=== PATIENT | male | born 1935 ===

== ENCOUNTER 2025-01-25 12:27 | Inpatient (IN) | payer MEDICARE, BC ==
[~2025-01-25] VITALS: Ht 188 cm; Wt 91.3 kg
[2025-01-25 12:45] VITALS: BP 139/68
[2025-01-25 14:06] VITALS: BP 139/68
[2025-01-25 21:00] VITALS: BP 112/52; TEMP 97.6; O2SAT 100
[2025-01-25] MEDS ORDERED: REMEDY ESSENTIAL ZINC PASTE 113 GM TOP PRN (21:45)
[2025-01-25] MEDS ORDERED: TRAM50TA2 PO (22:18)
[2025-01-25] MEDS ORDERED: EZET10TA15 PO (22:18)
[2025-01-25] MEDS ORDERED: ASPI-1420 PO (22:18)
[2025-01-25] MEDS ORDERED: HYDR-3972 PO (22:18)
[2025-01-25] MEDS ORDERED: ACET325T53 PO (22:18)
[2025-01-25] MEDS ORDERED: DONE5TAB34 PO (22:18)
[2025-01-25] MEDS ORDERED: AMLO-212 PO (22:18)
[2025-01-25] MEDS ORDERED: FLUT16SP BNOSTRILS (22:18)
[2025-01-25] MEDS ORDERED: DOCU100C36 PO (22:18)
[2025-01-25] MEDS ORDERED: CHOL10005 PO (22:18)
[2025-01-25] MEDS ORDERED: FINA5TAB11 PO (22:18)
[2025-01-25] MEDS ORDERED: LEVO88TA5 PO (22:18)
[2025-01-25] MEDS ORDERED: DICL100G31 TP (22:18)
[2025-01-25] MEDS ORDERED: MELO-107 PO (22:18)
[2025-01-25] MEDS ORDERED: FAMO20TA8 PO (22:18)
[2025-01-25] MEDS ORDERED: PROP15DR EACHEYE (22:18)
[2025-01-25] MEDS ORDERED: PRAV80TA21 PO (22:18)
[2025-01-25] MEDS ORDERED: ACETAMINOPHEN 325 MG TABLET-SA PATIENTS-PAIN ONLY PO PRN (23:45)
[2025-01-25] MEDS ORDERED: FLUTICASONE PROP NASAL SPRAY 16 GM BOTTLE NS PRN (23:45)
[2025-01-26 06:07] VITALS: BP 117/54; TEMP 97.6; O2SAT 100
[2025-01-26] MEDS: TRAMADOL HCL 50 MG TABLET PO PRN (06:24)
[2025-01-26] MEDS ORDERED: LEVOTHYROXINE SODIUM 88 MCG TABLET PO SCH (07:00)
[2025-01-26 08:00] VITALS: BP 145/56; TEMP 97.3; O2SAT 100
[2025-01-26] MEDS: EZETIMIBE 10 MG TABLET PO SCH (08:55)
[2025-01-26] MEDS: FINASTERIDE 5 MG TABLET PO SCH (08:56)
[2025-01-26] MEDS: ASPIRIN EC 81 MG TABLET.DR PO SCH (08:56)
[2025-01-26] MEDS: FAMOTIDINE 20 MG TABLET PO SCH (08:56)
[2025-01-26] MEDS: AMLODIPINE 5 MG TABLET PO SCH (08:56)
[2025-01-26] MEDS: CHOLECALCIFEROL 1,000 UNIT TABLET PO SCH (08:56)
[2025-01-26] MEDS: DONEPEZIL 5 MG TABLET PO SCH (08:56)
[2025-01-26] MEDS: MELOXICAM 7.5 MG TABLET PO SCH (08:56)
[2025-01-26] MEDS: LEVOTHYROXINE SODIUM 88 MCG TABLET PO SCH (10:28)
[2025-01-26] MEDS: ACETAMINOPHEN 325 MG TABLET PO PRN (10:29)
[2025-01-26] MEDS ORDERED: METO25TA6 PO (13:22)
[2025-01-26 20:00] VITALS: BP 146/58; TEMP 97.3; O2SAT 99
[2025-01-26] MEDS: ATORVASTATIN 20 MG TABLET PO SCH (20:35)
[2025-01-27 06:41] VITALS: BP 138/59; TEMP 97.9; O2SAT 97
[2025-01-27 07:03] LABS: BASOPHILS % (AUTO) 0.9 % (0.0-2.0); EOSINOPHILS # (AUTO) 0.4 K/uL (0.0-0.7); EOSINOPHILS % (AUTO) 13.6 % (0.0-7.0); HEMATOCRIT 24.7 % (36.7-47.1); HEMOGLOBIN 8.8 g/dL (12.5-16.3); LYMPHOCYTES # (AUTO) 0.7 K/uL (0.8-4.8); MEAN CORPUSCULAR HEMOGLOBIN 32.9 uug (23.8-33.4); MEAN CORPUSCULAR HGB CONC 36 g/dL (32.5-36.3); MEAN CORPUSCULAR VOLUME 92.1 fL (73.0-96.2); MONOCYTES # (AUTO) 0.4 K/uL (0.1-1.30); MONOCYTES % (AUTO) 11.6 % (0.0-11.0); NEUTROPHILS # (AUTO) 1.7 K/uL (1.8-8.9); NEUTROPHILS % (AUTO) 51.9 % (38.5-71.5); PLATELET COUNT (AUTO) 139 K/uL (152-348); RED BLOOD CELL COUNT(AUTO) 2.69 MIL/uL (4.06-5.63); RED CELL DISTRIBUTION WIDTH 13.7 % (12.1-16.2); WHITE BLOOD COUNT (AUTO) 3.2 K/uL (3.6-10.2)
[2025-01-27 07:07] LABS: DIFFERENTIAL COMMENT 1
[2025-01-27 07:09] LABS: CALCIUM 8.6 mg/dL (8.5-10.1); CARBON DIOXIDE 31 mmol/L (21-32); CHLORIDE 101 mmol/L (98-107); CREATININE 0.9 mg/dL (0.6-1.3); GLUCOSE 76 mg/dL (74-106); SODIUM SERUM 137 mmol/L (136-145); UREA NITROGEN, BLOOD 13 mg/dL (7-18)
[2025-01-27 08:00] VITALS: BP 106/32; TEMP 97; O2SAT 97
[2025-01-27 16:00] VITALS: BP 141/97; TEMP 98.2; O2SAT 97
[2025-01-27 21:01] VITALS: BP 121/62; TEMP 98; O2SAT 98
[2025-01-28 06:00] VITALS: BP 129/53; TEMP 97.8; O2SAT 96
[2025-01-28 07:54] VITALS: BP 129/49; TEMP 98.1; O2SAT 97
[2025-01-28 16:11] VITALS: BP 114/59; TEMP 97.1; O2SAT 100
[2025-01-28 21:41] VITALS: BP 119/50; TEMP 98.1; O2SAT 100
[2025-01-29 06:43] VITALS: BP 133/60; TEMP 97.6; O2SAT 99
[2025-01-29 08:00] VITALS: BP 102/66; TEMP 97.7; O2SAT 97
[2025-01-29] MEDS: ARGININE/GLUTAMINE/CALCIUM BMB 1 EACH POWD.PACK PO SCH (09:16)
[2025-01-29 16:02] VITALS: BP 114/48; TEMP 97.6; O2SAT 98
[2025-01-29] MEDS: HYDROCODONE/APAP 5-325MG TABLET PO PRN (17:08)
[2025-01-29 20:00] VITALS: BP 126/64; TEMP 98.8; O2SAT 93
[2025-01-30 06:00] VITALS: BP 114/47; TEMP 98; O2SAT 98
[2025-01-30 09:07] VITALS: BP 116/50; TEMP 98.1; O2SAT 97
[2025-01-30 15:31] VITALS: BP 104/46; TEMP 97.9; O2SAT 99
[2025-01-30 21:55] VITALS: BP 118/48; TEMP 97.4; O2SAT 96
[2025-01-31 06:34] VITALS: BP 131/57; TEMP 97.9; O2SAT 98
[2025-01-31 10:56] VITALS: BP 123/50; TEMP 97.8; O2SAT 98
[2025-01-31 16:00] VITALS: BP 109/70; TEMP 97.6; O2SAT 97
[2025-01-31 21:09] VITALS: BP 112/43; TEMP 98; O2SAT 97
[2025-02-01 07:24] VITALS: BP 128/61; TEMP 97.7; O2SAT 96
[2025-02-01 09:00] VITALS: BP 106/40; TEMP 97.4; O2SAT 100
[2025-02-01 17:00] VITALS: BP 102/46; TEMP 97.7; O2SAT 98
[2025-02-01 19:50] VITALS: BP 118/45; TEMP 97.4; O2SAT 99
[2025-02-02 05:09] VITALS: BP 134/55; TEMP 97.7; O2SAT 97
[2025-02-02 08:00] VITALS: TEMP 97.4
[2025-02-02 16:47] VITALS: TEMP 97.6
[2025-02-02] MEDS ORDERED: BISACODYL 10 MG SUPP.RECT RC ONE (19:30)
[2025-02-02 20:00] VITALS: BP 126/55; TEMP 97.6; O2SAT 99
[2025-02-02] MEDS: BISACODYL 10 MG SUPP.RECT RC ONE (21:16)
[2025-02-03 06:00] VITALS: BP 129/70; TEMP 97.6; O2SAT 97
[2025-02-03 06:47] LABS: BASOPHILS % (AUTO) 1.2 % (0.0-2.0); EOSINOPHILS # (AUTO) 0.5 K/uL (0.0-0.7); EOSINOPHILS % (AUTO) 15.5 % (0.0-7.0); HEMATOCRIT 23.9 % (36.7-47.1); HEMOGLOBIN 8.6 g/dL (12.5-16.3); LYMPHOCYTES # (AUTO) 0.7 K/uL (0.8-4.8); LYMPHOCYTES % (AUTO) 22.4 % (20.5-51.5); MEAN CORPUSCULAR HEMOGLOBIN 33.4 uug (23.8-33.4); MEAN CORPUSCULAR HGB CONC 36 g/dL (32.5-36.3); MEAN CORPUSCULAR VOLUME 92.4 fL (73.0-96.2); MONOCYTES # (AUTO) 0.2 K/uL (0.1-1.30); MONOCYTES % (AUTO) 7.8 % (0.0-11.0); NEUTROPHILS # (AUTO) 1.7 K/uL (1.8-8.9); NEUTROPHILS % (AUTO) 53.1 % (38.5-71.5); PLATELET COUNT (AUTO) 197 K/uL (152-348); RED BLOOD CELL COUNT(AUTO) 2.58 MIL/uL (4.06-5.63); RED CELL DISTRIBUTION WIDTH 13.2 % (12.1-16.2); WHITE BLOOD COUNT (AUTO) 3.2 K/uL (3.6-10.2)
[2025-02-03 06:58] LABS: DIFFERENTIAL COMMENT 1
[2025-02-03 07:08] LABS: IRON, SERUM 52 ug/dL (50-175)
[2025-02-03 07:30] LABS: ALANINE AMINOTRANSFERASE 14 U/L (16-63); ALBUMIN 3.1 g/dL (3.4-5.0); ALKALINE PHOSPHATASE 70 U/L (50-136); ASPARTATE AMINOTRANSFERASE 15 U/L (15-37); BILIRUBIN,TOTAL 0.7 mg/dL (0.2-1.0); CALCIUM 9.1 mg/dL (8.5-10.1); CARBON DIOXIDE 31 mmol/L (21-32); CHLORIDE 101 mmol/L (98-107); FERRITIN 523 ng/mL (26-388); GLUCOSE 73 mg/dL (74-106); PHOSPHOROUS 3.4 mg/dL (2.5-4.9); POTASSIUM 3.8 mmol/L (3.5-5.1); SODIUM SERUM 138 mmol/L (136-145); TOTAL PROTEIN, SERUM 6.8 g/dL (6.4-8.2); UREA NITROGEN, BLOOD 17 mg/dL (7-18)
[2025-02-03 07:53] VITALS: BP 126/57; TEMP 97.1; O2SAT 100
[2025-02-03 16:10] VITALS: BP 119/54; TEMP 98.4; O2SAT 100
[2025-02-03 20:00] VITALS: BP 134/62; TEMP 97.7; O2SAT 99
[2025-02-04 06:00] VITALS: BP 130/60; TEMP 98.1; O2SAT 98
[2025-02-04 09:07] VITALS: BP 129/67; TEMP 97; O2SAT 100
[2025-02-04] MEDS ORDERED: BISACODYL 5 MG TABLET.DR PO PRN (19:45)
[2025-02-04 21:14] VITALS: BP 115/52; TEMP 97.8; O2SAT 100
[2025-02-04] MEDS: DOCUSATE SODIUM 100 MG CAPSULE PO PRN (21:43)
[2025-02-05 06:20] VITALS: BP 120/56; TEMP 97.4; O2SAT 98
[2025-02-05 07:45] VITALS: BP 126/57; TEMP 97.6; O2SAT 98
[2025-02-05 16:00] VITALS: BP 109/46; TEMP 97.8; O2SAT 97
[2025-02-05 20:29] VITALS: BP 122/51; TEMP 97.6; O2SAT 99
[2025-02-06 06:05] VITALS: BP 116/52; TEMP 97.8; O2SAT 96
[2025-02-06 08:00] VITALS: BP 138/71; TEMP 97.7; O2SAT 97
[2025-02-06 08:33] VITALS: BP 138/71
== END 2025-02-06 14:30 | disposition home health service (06) | DRG 561 ==
PROVIDERS: ADMIT Physical Medicine & Rehabilitation Pain Medicine; ATTEND Physical Medicine & Rehabilitation Pain Medicine
DX: Z47.1 Aftercare following joint replacement surgery (principal); Z96.653 Presence of artificial knee joint, bilateral; D64.9 Anemia, unspecified; E03.9 Hypothyroidism, unspecified; E78.5 Hyperlipidemia, unspecified; I48.91 Unspecified atrial fibrillation; Z74.09 Other reduced mobility; Z88.8 Allergy status to other drugs, medicaments and biological substances; Z88.1 Allergy status to other antibiotic agents; R31.9 Hematuria, unspecified; R41.3 Other amnesia
CPT/HCPCS: 36415; 73562; 83550; 83735; 84100; 85025; 97535-GO-CO; A6209; J3535